=== PATIENT | female | born 1960 | race Caucasian/White ===

== ENCOUNTER 2017-06-05 10:08 | Emergency (ER) | payer OTHER ==
[~2017-06-05] VITALS: Ht 177.8 cm; Wt 88.5 kg
[~2017-06-05 10:08] MED LIST: ATEN25 PO; ATOR10 PO; CELE200 PO; HYDR1TAB94 PO
[2017-06-05] MEDS ORDERED: Norco 5-325 Ta1 EACH PO (11:14)
== END 2017-06-05 11:44 | disposition home or self-care (01) ==
LOC: ER 10:08
DX: S52.502A Unspecified fracture of the lower end of left radius, initial encounter for closed fracture (principal); I10 Essential (primary) hypertension; E78.5 Hyperlipidemia, unspecified; Z87.891 Personal history of nicotine dependence; Z88.0 Allergy status to penicillin; Z88.8 Allergy status to other drugs, medicaments and biological substances; Z79.899 Other long term (current) drug therapy; W01.10XA Fall on same level from slipping, tripping and stumbling with subsequent striking against unspecified object, initial encounter
CPT/HCPCS: 29125; 73110; 99283

== ENCOUNTER 2020-12-22 10:33 | Day surgery (SDC) | payer OTHER ==
[~2020-12-22] VITALS: Ht 177.8 cm; Wt 88.8 kg
[~2020-12-22 10:33] MED LIST changes: +BACLOFEN5 M1 PO; +Flonase 0.05% N16 GM; +LANS30EC PO; +Norco 5-325 Ta1 EACH PO
[2020-12-22] MEDS ORDERED: FISH OIL 1,2001 EAC7 (10:48)
[2020-12-22] MEDS ORDERED: CELE100 (10:48)
== END 2020-12-22 12:49 | disposition home or self-care (01) ==
LOC: ORSCSDS 10:33
PROVIDERS: Internal Medicine Gastroenterology
PROC: 0DB98ZX Excision of Duodenum, Via Natural or Artificial Opening Endoscopic, Diagnostic (ICD-10-PCS; principal; 2020-12-22 12:15)
PROC: 0DB68ZX Excision of Stomach, Via Natural or Artificial Opening Endoscopic, Diagnostic (ICD-10-PCS; principal; 2020-12-22 12:15)
DX: K30 Functional dyspepsia (principal); K25.9 Gastric ulcer, unspecified as acute or chronic, without hemorrhage or perforation; K21.00 Gastro-esophageal reflux disease with esophagitis, without bleeding; R10.9 Unspecified abdominal pain; Z86.010 Personal history of colon polyps; Z87.891 Personal history of nicotine dependence; Z79.899 Other long term (current) drug therapy
CPT/HCPCS: 88305; 88342; J2704; J7120